=== PATIENT | female | born 1990 | race Caucasian/White ===

== ENCOUNTER 2016-08-29 14:13 | Emergency (ER) | payer OTHER ==
[~2016-08-29] VITALS: Wt 74.0 kg
[~2016-08-29 14:13] MED LIST: PRENAT PO
[2016-08-29] MEDS ORDERED: HYDR-906 PO (15:04)
[2016-08-29] MEDS ORDERED: NAPR-260 PO (15:05)
[2016-08-29] MEDS ORDERED: CYCL-319 PO (15:05)
--- NOTE | 2016-08-29 15:16 | ERD ---
ER Documentation Chief Complaint Date/Time DATE: 08/29/16 TIME: 15:12 Chief Complaint LOWER BACK PAIN AFTER [facility] HPI This patient is a 25-year-old female with no significant medical history presenting to the emergency department for right-sided paraspinal lumbar pain ongoing intermittently for the past 3 weeks. The patient is taken Tylenol at home with mild relief of her symptoms. She reports 8 out of 10 pain which is exacerbated by movement. She denies any injury, trauma, fevers, chills, bowel or bladder incontinence. She denies any loss of function or numbness or tingling of the lower extremities. ROS All systems reviewed and are negative except as per history of present illness. Medications Home Meds Active Scripts Naproxen* (Naprosyn*) 500 Mg Tablet, 500 MG PO BID Y for PAIN AND/OR INFLAMMATION, #15 TAB Prov:PRERNA HEAD PA-C 08/29/16 Cyclobenzaprine Hcl* (Cyclobenzaprine Hcl*) 10 Mg Tablet, 10 MG PO TID, #15 TAB Prov:PRERNA HEAD PA-C 08/29/16 Hydrocodone/Acetaminophen ([place] 5-325 Tablet) 1 Each Tablet, 1 TAB PO Q6H Y for PAIN, #7 TAB Prov:PRERNA HEAD PA-C 08/29/16 Reported Medications Multivit/Min/Fol Ac/Iron/Pren* ( S*) 1 Tab Tab, 1 TAB PO DAILY, TAB 01/03/15 Allergies Allergies: Coded Allergies: No Known Drug Allergies (Verified Allergy, Mild, 08/13/14) No Known Drug Allergy (Unverified Allergy, Unknown, 02/09/15) PMhx/Soc Medical and Surgical Hx: pt denies Medical Hx, pt denies Surgical Hx History of Surgery: No Anesthesia Reaction: No Hx Neurological Disorder: No Hx Respiratory Disorders: No Hx Cardiac Disorders: No Hx Psychiatric Problems: No Hx Miscellaneous Medical Probl: No Hx Alcohol Use: No Hx Substance Use: No Hx Tobacco Use: No Smoking Status: Never smoker FmHx Noncontributory for chief complaint Physical Exam Vitals Vital Signs Date Time Temp Pulse Resp B/P Pulse Ox O2 Delivery O2 Flow Rate FiO2 08/29/16 14:23 98.6 89 18 129/71 99 Physical Exam INITIAL VITAL SIGNS: Reviewed by me. GENERAL: Alert and interactive. No acute distress. HEAD: Head is normocephalic and atraumatic. EYES: EOMI. No scleral icterus. No conjunctival injection. ENT: Moist mucosa. NECK: Supple. Full range of motion. RESPIRATORY: Normal respiratory effort. Clear breath sounds bilaterally. No wheezing, rales, or rhonchi. CV: Regular rate and rhythm. Normal S1 S2. No S3 or S4. No murmurs. ABDOMEN: Soft, non-distended, non-tender. No guarding. No rebound. No masses. EXTREMITIES: No deformity. Sensation is intact in all 4 extremities. Strength is intact in all 4 extremity's. BACK: Tenderness to palpation of the paraspinal muscles of the L-spine bilaterally. The pain is worse on the right side. Negative straight leg raise bilaterally. SKIN: Warm and dry. NEUROLOGIC: Alert and oriented x 4. Speech is normal. Moves all extremities equally. No motor or sensory deficits noted. Results 24 hrs Current Medications Medications (Trade) Dose Ordered Sig/Rupali Route PRN Reason Start Time Stop Time Status Last Admin Dose Admin Acetaminophen/ Hydrocodone Bitart ([place] (5/325)) 1 tab ONCE ONCE PO 08/29/16 15:30 08/29/16 15:31 Procedures/MDM 25-year-old female presents secondary to complaints of right-sided paraspinal lumbar pain. On physical examination the patient's vitals are within normal limits. Examination of the back reveals mild tenderness to palpation of the paraspinal muscles of the L-spine worse on the right side. The patient has no bowel or bladder incontinence or loss of function of the lower extremities and I have very low suspicion for any Guyon Mcconnell syndrome, cauda equina, herniation of lumbar disc, epidural abscess, or other emergent conditions. The patient did well with treatment in the department with p.o. [place]. The patient was discharged home with prescriptions for naproxen, Flexeril, and [place] to take only as needed for pain. The patient was advised to follow-up with her primary care physician for further evaluation and treatment. Patient was advised to return the department immediately for any new or worsening symptoms and she understands this information. All questions and concerns were addressed. The patient was hemodynamically stable prior to discharge. Departure Diagnosis: Primary Impression: Sciatica Additional Impression: Low back pain Condition: Stable Patient Instructions: Understanding Sciatica, Back Pain (Acute Or Chronic), Back Pain W/ Sciatica Additional Instructions: Follow-up with your primary care physician within 1 week. Return to the emergency department immediately should you have any new or worsening symptoms, uncontrolled fevers, or other unexplained symptoms. Take all medications as directed. PRERNA HEAD PA-C Aug 29, 2016 15:15
[2016-08-29] MEDS ORDERED: HYDROCODONE/APAP (5/325) TAB PO ONE (15:30)
[2016-08-29 15:46] VITALS: BP 104/69; PULSE 68; RESP 18; TEMP 98.4
== END 2016-08-29 15:47 | disposition home or self-care (01) ==
LOC: FTE 14:13
DX: M54.31 Sciatica, right side (principal); M54.32 Sciatica, left side; W19.XXXA Unspecified fall, initial encounter; Y92.9 Unspecified place or not applicable
CPT/HCPCS: Z7502; Z7610; 99284

== ENCOUNTER 2017-03-03 13:24 | Emergency (ER) | payer OTHER ==
[~2017-03-03] VITALS: Ht 157.5 cm; Wt 68.0 kg
[~2017-03-03 13:24] MED LIST changes: +CYCL-319 PO; +HYDR-906 PO; +NAPR-260 PO
[2017-03-03 13:26] VITALS: Ht 157.5 cm; Wt 68.0 kg
--- NOTE | 2017-03-03 13:53 | ERD ---
ER Documentation Chief Complaint Date/Time DATE: 03/03/17 TIME: 13:49 Chief Complaint pt bib self with c/o back pain on and off for a few months, HPI 26-year-old otherwise healthy female presents the emergency department for complaints of intermittent mid and lower back pain 3 months. She currently reports her pain as a dull 7 out of 10 pain located from the thoracic to the lumbar region which occasionally radiates down the right leg. She denies any weakness, numbness, tingling, or difficulty walking. Patient denies any injury or motor vehicle accident. She denies fever, chills, chest pain, shortness of breath, abdominal pain, dysuria, hematuria. She states she gave 6 months ago and received an epidural. She states since that time she has been in school and sits for long periods every day which is not at home caring for her baby. ROS All systems reviewed and are negative except as per history of present illness. Medications Home Meds Active Scripts Hydrocodone/Acetaminophen ([place] 5-325 Tablet) 1 Each Tablet, 1 EACH PO Q6, #7 TAB Prov:CARLOS OLIVA PA-C 03/03/17 Cyclobenzaprine Hcl* (Cyclobenzaprine Hcl*) 5 Mg Tablet, 5 MG PO Q8H Y for PAIN , #30 TAB Prov:CARLOS OLIVA PA-C 03/03/17 Naproxen* (Naprosyn*) 500 Mg Tablet, 500 MG PO BID for 30 Days, TAB Prov:CARLOS OLIVA PA-C 03/03/17 Naproxen* (Naprosyn*) 500 Mg Tablet, 500 MG PO BID Y for PAIN AND/OR INFLAMMATION, #15 TAB Prov:PRERNA HEAD PA-C 08/29/16 Cyclobenzaprine Hcl* (Cyclobenzaprine Hcl*) 10 Mg Tablet, 10 MG PO TID, #15 TAB Prov:PRERNA HEAD PA-C 08/29/16 Hydrocodone/Acetaminophen ([place] 5-325 Tablet) 1 Each Tablet, 1 TAB PO Q6H Y for PAIN, #7 TAB Prov:PRERNA HEAD PA-C 08/29/16 Reported Medications Multivit/Min/Fol Ac/Iron/Pren* ( S*) 1 Tab Tab, 1 TAB PO DAILY, TAB 01/03/15 Allergies Allergies: Coded Allergies: No Known Drug Allergies (Verified Allergy, Mild, 08/13/14) No Known Drug Allergy (Unverified Allergy, Unknown, 02/09/15) PMhx/Soc History of Surgery: No Anesthesia Reaction: No Hx Neurological Disorder: No Hx Respiratory Disorders: No Hx Cardiac Disorders: No Hx Psychiatric Problems: No Hx Miscellaneous Medical Probl: No Hx Alcohol Use: No Hx Substance Use: No Hx Tobacco Use: No Physical Exam Vitals Vital Signs Date Time Temp Pulse Resp B/P Pulse Ox O2 Delivery O2 Flow Rate FiO2 03/03/17 13:26 98.3 76 16 126/66 100 Physical Exam Const: Well-developed, well-nourished, in no acute distress Head: Atraumatic, normocephalic Neck: Full range of motion..~ No meningismus. No midline cervical spine tenderness Resp: Clear to auscultation bilaterally Cardio: Regular rate and rhythm, no murmurs Abd: Soft, non tender, non distended. Normal bowel sounds Skin: No petechiae or rashes Back: No midline or flank tenderness. Patient has full range of motion at the hip joint. No tenderness to palpation along the piriformis muscle region. Ext: Patient able to bear full weight and ambulate with steady gait. No midline spinal tenderness. No swelling, ecchymosis, bony step-off, or deformity. Patient with full range of motion at hip knee and ankle joints. Patient with good strength bilaterally at hip knee and ankle joints. Patellar deep tendon reflexes equal and bilateral. Distal sensation intact to light touch at bilateral lower extremities. Pedal pulses equal and bilateral. No cyanosis, or edema. Neur: Awake and alert Psych: Normal Mood and Affect Results 24 hrs Laboratory Tests Test 03/03/17 14:30 Urine Color YELLOW Urine Clarity SLIGHTLY CLOUDY Urine pH 5.0 Urine Specific [place] 1.015 Urine Ketones NEGATIVEmg/dL Urine Nitrite NEGATIVEmg/dL Urine Bilirubin NEGATIVEmg/dL Urine Urobilinogen NEGATIVEmg/dL Urine Leukocyte Esterase NEGATIVELeu/ul Urine Microscopic RBC 1/HPF Urine Microscopic WBC 2/HPF Urine Squamous Epithelial Cells FEW/HPF Urine Hemoglobin 1+mg/dL Urine Glucose NEGATIVEmg/dL Urine Total Protein NEGATIVEmg/dl Current Medications Medications (Trade) Dose Ordered Sig/Rupali Route PRN Reason Start Time Stop Time Status Last Admin Dose Admin Ibuprofen (Motrin) 600 mg ONCE ONCE PO 03/03/17 14:00 03/03/17 14:01 DC 03/03/17 14:16 Procedures/MDM This is an otherwise healthy 26-year-old female who presents emergency department for intermittent back pain 3 months. Patient denies any trauma but notes prolonged sitting while at school. Vital signs reviewed and within normal limits upon arrival. Patient denies history of fever or chills. Physical exam without evidence of any tenderness, swelling, step-off, decreased range of motion, weakness, or neurologic deficit. Urine analysis without evidence of nitrites, leukocyte esterase, or bacteremia Urine negative. The patient's low back pain is unlikely related to serious etiology. The patient exhibits no clinical signs or symptoms and has no history or risk factors to suggest cauda equina, cord compression, epidural abscess, epidural hematoma, pyelonephritis, acute aortic aneurysm or dissection. History and physical exam consistent with likely thoracic lumbar strain, likely due to prolonged sitting while at school. Patient to begin low back exercises and start Motrin for pain control. Recommended for her to follow-up with primary care physician for possible referral to physical therapy or orthopedic surgeon for MRI if symptoms do not improve. Based on patient's history of present illness and physical examination the decision was made to discharge. The patient was re-evaluated after ED treatment and stabilizing measures, and symptoms have improved. There is no evidence of life threatening injuries or illnesses at this time. On re-examination, patient resting in no distress, stable vital signs, reports feeling better and safe for discharge with outpatient follow up with PMD in 1-2 days. Patient given return precautions. Departure Diagnosis: Primary Impression: Back pain Back pain location: low back pain Chronicity: acute Back pain laterality: midline Sciatica presence: unspecified whether sciatica present Qualified Code: M54.5 - Acute midline low back pain, with sciatica presence unspecified CARLOS OLIVA PA-C Mar 03, 2017 13:53
[2017-03-03] MEDS ORDERED: IBUPROFEN 600 MG TAB PO ONE (14:00)
[2017-03-03] MEDS ORDERED: CYCL5TAB PO (14:39)
[2017-03-03] MEDS ORDERED: NAPR-260 PO (14:39)
[2017-03-03] MEDS ORDERED: HYDR-906 PO (14:39)
[2017-03-03 14:53] LABS: ADD UMIC YES; UR ASCORBIC ACID NEGATIVE (NEGATIVE); UR BILIRUBIN (Dip) NEGATIVE (NEGATIVE); UR BLOOD (Dip) 1+ mg/dL (NEGATIVE); UR CLARITY SLIGHTLY CLOUDY (CLEAR); UR COLOR YELLOW (YELLOW); UR GLUCOSE (Dip) NEGATIVE (NEGATIVE); UR KETONES (Dip) NEGATIVE (NEGATIVE); UR LEUKOCYTE ESTERASE (Dip) NEGATIVE Leu/ul (NEGATIVE); UR NITRITE (Dip) NEGATIVE (NEGATIVE); UR RBC 1 /HPF (0-5); UR SPECIFIC GRAVITY (Dip) 1.015 (1.003-1.030); UR SQUAMOUS EPITHELIAL CELL FEW /HPF (FEW); UR TOTAL PROTEIN (Dip) NEGATIVE (NEGATIVE); UR UROBILINOGEN (Dip) NEGATIVE (NEGATIVE)
[2017-03-03 15:43] VITALS: BP 119/64; PULSE 78; RESP 19
== END 2017-03-03 15:44 | disposition home or self-care (01) ==
LOC: FTE 13:24
DX: M54.5 Low back pain (principal)
CPT/HCPCS: 81001; Z7502; Z7610; 99284

== ENCOUNTER 2018-09-18 20:59 | Emergency (ER) | payer SELFPAY ==
[~2018-09-18] VITALS: Ht 160 cm; Wt 63.7 kg
[~2018-09-18 20:59] MED LIST changes: -CYCL-319 PO; +CYCL10TA7 PO; +CYCL5TAB PO; +HYDR-4011 PO; -HYDR-906 PO; -NAPR-260 PO; +NAPR-985 PO
[2018-09-18 21:17] VITALS: BP 119/58; PULSE 79; RESP 16; Ht 160 cm; Wt 63.7 kg
== END 2018-09-19 00:45 | disposition left against medical advice (07) ==
LOC: E/R 20:59
DX: Z53.21 Procedure and treatment not carried out due to patient leaving prior to being seen by health care provider (principal)
CPT/HCPCS: 93005; 99281